=== PATIENT | female | born 2000 | race Caucasian/White ===

== ENCOUNTER 2022-12-07 14:50 | Emergency (ER) | payer SELFPAY ==
[~2022-12-07] VITALS: Ht 165.1 cm; Wt 54.4 kg
[2022-12-07 15:06] VITALS: BP 114/64
[2022-12-07] MEDS ORDERED: CEPH500C2 PO (16:14)
[2022-12-07] MEDS ORDERED: SULF1TAB48 PO (16:14)
== END 2022-12-07 16:23 | disposition home or self-care (01) ==
LOC: ER 14:55
DX: L02.416 Cutaneous abscess of left lower limb (principal)